=== PATIENT | female | born 1965 | race Two or more races ===

== ENCOUNTER 2024-10-20 16:30 | Emergency (ER) | payer BC, SELFPAY ==
[2024-10-20 16:33] VITALS: BMI 41.1
[2024-10-20 16:59] VITALS: BP 99/62; PULSE 82; RESP 16; TEMP 37.1; O2SAT 95
--- NOTE | 2024-10-20 17:07 | PD.EDRME ---
Rapid Medical Screening Exam E Arrival date/time: 10/20/24 16:30 This is a 59-year-old female that comes into the emergency room with complaints of syncopal episode that happened prior to arrival. Patient states that she is from [place] and her and her significant other were on a motorcycle going to [employer]. Patient states that they ate and they drink at a restaurant and they are on the way to the casino and started to feel very nauseous. Patient states that they stopped and she had a syncopal episode lasting approximately 15 to 20 seconds. By bystanders brought her to the emergency room. Patient complains of nausea patient reports a history of high blood pressure. Patient denies chest pain shortness of breath. I have greeted and performed a focused initial assessment of this patient. Initial appropriate labs ordered at this time. A comprehensive ED assessment and evaluation of the patient and analysis of all test and completion of medical decision making process will be conducted by additional ED provider. Chief Complaint: Syncope / Near Syncope Time Seen by Provider: 10/20/24 16:38 Vital signs: Vital Signs Temperature 98.7 F 10/20/24 16:59 Pulse Rate 82 10/20/24 16:59 Respiratory Rate 16 10/20/24 16:59 Blood Pressure 99/62 10/20/24 16:59 Pulse Oximetry (%) 95 10/20/24 16:59 Oxygen Delivery Method Room Air 10/20/24 16:59
--- NOTE | 2024-10-20 17:08 | XR_ITS ---
Examination: CT brain head without contrast. 2-D sagittal coronal reconstructions Date and time of exam:October 20, 2024, 1725 hrs. Indications: Syncopal episode today with vomiting. CTDI: vol (mGy):56.3. DLP: (mGycm):1159. Technique: Multiple CT axial sections of the brain have been obtained, 5 mm slice thickness. Contrast has not been administered. 2-D sagittal, coronal reconstructions have been obtained Low dose protocols were performed. One or more of the following dose reduction techniques were used; automated exposure control, adjustment of the mA and/or KV according to patient size, use of iterative reconstruction technique. Findings: No significant ventricular enlargement. Intra-axial or extra-axial hemorrhage density is not seen. No mass effect or midline shift Basal cisterns are not remarkable. Fourth ventricle is midline. Cranial vault intact. Impression: Negative for acute hemorrhage, mass effect or midline shift
--- NOTE | 2024-10-20 17:08 | EKG_ITS ---
[facility] Test Date: 2024-10-20 Pat Name: GAIL HAMPTON Department: Room: - Gender: Female Ticket Collector: : 1965 Requested By: Nneka Simeon Order Number: [id number] Reading MD: Nneka Simeon Measurements Intervals [place] Rate: 90 P: 28 FL: 155 QRS: 11 QRSD: 82 T: -10 QT: 340 QTc: 418 Interpretive Statements SINUS RHYTHM LOW QRS VOLTAGE IN PRECORDIAL LEADS [QRS DEFLECTION < 1.0 mV IN CHEST LEADS] MINIMAL ST DEPRESSION [0.025+ mV ST DEPRESSION] No previous ECG available for comparison /store/S0/[id number]/ecg/[id number].pdf
[2024-10-20 18:20] LABS: Basophils # (Auto) 0.0 Thou/mm3 (0.0-0.2); Basophils % (Auto) 0 % (0-2.5); Eosinophils # (Auto) 0.2 Thou/mm3 (0.0-0.5); Eosinophils % (Auto) 2 % (0-10); Hematocrit 44.3 % (36.0-46.0); Hemoglobin 15.3 g/dL (12.0-16.0); Immature Granulocytes Auto 0.06 Thou/mm3 (0.00-0.00); Lymphocytes # (Auto) 1.5 Thou/mm3 (1.0-4.8); Lymphocytes % (Auto) 11 % (10-50); Mean Corpuscular HGB Conc 34.5 g/dl (31.0-37.0); Mean Corpuscular Hemoglobin 34.1 pg (25.0-35.0); Mean Corpuscular Volume 99 fL (80-100); Monocytes # (Auto) 0.7 Thou/mm3 (0.0-0.8); Monocytes % (Auto) 5 % (0-12); Neutrophils # (Auto) 11.2 Thou/mm3 (1.8-7.7); Neutrophils % (Auto) 82 % (37-80); Nucleated Red Blood Cell # 0.00 Thou/mm3 (0.00-0.00); Nucleated Red Blood Cell % 0 /100 WBC (0); Platelet Count 240 Thou/mm3 (140-440); RDW Standard Deviation 43.8 fL (36.4-46.3); Red Blood Count 4.49 Miln/mm3 (4.00-5.20); White Blood Count 13.7 Thou/mm3 (3.6-11.0)
[2024-10-20 18:36] LABS: Alanine Aminotransferase 15 U/L (10-49); Albumin, Serum 4.1 gm/dL (3.4-4.8); Albumin/Globulin Ratio 1.3 (1.2-2.2); Alkaline Phosphatase 124 U/L (46-116); Anion Gap 12 (7-16); Aspartate Amino Transferase 23 U/L (0-34); BUN/Creatinine Ratio 12 Ratio (12-20); Bilirubin,Total 0.3 mg/dL (0.3-1.2); Blood Urea Nitrogen 13 mg/dL (9-23); Calcium 9.9 mg/dL (8.3-10.6); Calcium (Corrected) 9.9 mg/dL (8.5-10.1); Carbon Dioxide 24.6 mMol/L (20.0-31.0); Chloride 106 mMol/L (98-107); Creatinine (Component) 1.1 mg/dL (0.6-1.3); Estimated Creatinine Clearance 65.6 mL/min (>60); Globulin 3.1 gm/dL (2.3-3.5); Glucose 79 mg/dL (74-106); Lipase 33 U/L (12-53); Osmolality,Calculated 284 (275-295); Potassium 3.9 mMol/L (3.4-5.1); Sodium 143 mMol/L (136-145); Total Protein 7.2 gm/dL (5.7-8.2); Troponin I < 0.002 ng/mL (0.0-0.045); eGFR 58 See Note
[2024-10-20 18:36] LABS: Collection Type, Urine Voided
[2024-10-20 18:51] LABS: Bacteria,Urine Rare; Bilirubin,Urine Negative (Negative); Blood,Urine 1+ (Negative); Clarity,Urine Turbid (Clear/Hazy); Color,Urine Yellow (Lt Yel-Yel); Culture Indicated,Urine Not Indicated; Glucose, Urine Negative (Negative); Hyaline Casts,Urine 3 /hpf (0-1); Ketones,Urine Trace (Negative); Leukocyte Esterase,Urine Negative (Negative); Nitrite,Urine Negative (Negative); PH,Urine 5.5 (5.0-7.0); Protein,Urine 2+ (Neg - Trace); RBC,Urine 2 /hpf (0-3); Specific Gravity,Urine 1.018 (1.001-1.035); Squamous Epithelial Cell,Urine 6 /hpf (0-5); Urobilinogen,Urine Negative mg/dL (0.0-1.0); WBC,Urine 9 /hpf (0-5)
[2024-10-20 18:56] LABS: Amphetamine/Methamp Scrn,U Negative (Negative); Barbiturate Screen,Urine Negative (Negative); Benzodiazepines Screen,Urine Negative (Negative); Benzoylecgonine Screen, Ur Negative (Negative); Fentanyl Screen,Urine Negative (Negative); Opiate Screen,Urine Negative (Negative); THC Screen,Urine Negative (Negative)
[2024-10-20 19:07] LABS: B-Type Natriuretic Peptide 38 pg/mL (0-100)
[2024-10-20 19:37] VITALS: BP 129/78; PULSE 61; RESP 18; O2SAT 97
--- NOTE | 2024-10-20 19:56 | PD.EDSYNC ---
ED Syncope RME/HPI General Chief Complaint: Syncope / Near Syncope Stated Complaint: SYNCOPE Time Seen by Provider: 10/20/24 16:38 Arrival date/time: 10/20/24 16:30 RME / HPI RME / HPI narrative: 10/20/24 16:30 This is a 59-year-old female that comes into the emergency room with complaints of syncopal episode that happened prior to arrival. Patient states that she is from [place] and her and her significant other were on a motorcycle going to [employer] [place]. Patient states that they ate and they drink at a restaurant and they are on the way to the [place] and started to feel very nauseous. Patient states that they stopped and she had a syncopal episode lasting approximately 15 to 20 seconds. By bystanders brought her to the emergency room. Patient complains of nausea patient reports a history of high blood pressure. Patient denies chest pain shortness of breath. I have greeted and performed a focused initial assessment of this patient. Initial appropriate labs ordered at this time. A comprehensive ED assessment and evaluation of the patient and analysis of all test and completion of medical decision making process will be conducted by additional ED provider. DR. ROSE MAIN ED EVALUATION: 59 y/o female with Hx of HTN presents to ED c/o possible syncopal episode x just [employer]. states patient passed out. Patient arrived with a BP in the 90's/60's. She is compliant with her Losartan and denies any recent change in dose. No other concerns or complaints expressed at this time. Related Data Allergies Allergy/AdvReac Type Severity Reaction Status Date / Time No Known Allergies Allergy Verified 10/20/24 16:32 Review of Systems Review of Systems Systems Reviewed: All systems reviewed, normal except as documented Past Medical History Past Medical History CARDIAC: Positive Hypertension Social History SMOKING STATUS: Never smoker ED Exam Narrative Physical exam: Generally patient is alert and in no obvious distress, heart is regular rate and rhythm, lungs clear to auscultation bilaterally, abdomen is obese soft bowel sounds present on send nontender, skin is warm and dry, neurologic exam Heath Coma Scale is 15 without focal motor deficit. Course Quality Measures none Orders Category Date Time Status EKG (ED ONLY) *Do not use* NOW Care 10/20/24 17:[address] head/brain wo con Stat Exams 10/20/24 17:08 Completed EKG (ED Only) Stat Exams 10/20/24 17:08 Draft BNP [B-Type Natriuretic Peptide] Stat Lab 10/20/24 17:54 Completed CBC Stat Lab 10/20/24 17:54 Completed Comprehensive Metabolic Panel Stat Lab 10/20/24 17:54 Completed Drug Screen,Urine Stat Lab 10/20/24 18:10 Completed Lipase Stat Lab 10/20/24 17:54 Completed Troponin I Stat Lab 10/20/24 17:54 Completed Urinalysis, C/S if Indicated Stat Lab 10/20/24 18:10 Completed Vital Signs Vital signs: Vital Signs Temperature 98.7 F 10/20/24 16:59 Pulse Rate 82 10/20/24 16:59 Respiratory Rate 16 10/20/24 16:59 Blood Pressure 99/62 10/20/24 16:59 Pulse Oximetry (%) 95 10/20/24 16:59 Oxygen Delivery Method Room Air 10/20/24 16:59 Syncope MDM Narrative MDM Narrative:: Scribe Attestation: Nisha Caceres, am scribing for and in the presence of Dr. Rose. Provider Notation: Although this document has been carefully reviewed, there may still be some phonetic and other typographical errors. These errors are purely grammatical due to imperfections in the software program and should not be construed in any way to? compromise the substance of the patient's medical care during this visit. Differential diagnosis: Syncope, nonsyncope, hypotension, electrolyte abnormality And interpreted all labs. There is no great abnormality. Blood pressure upon arrival was 90s over 60s. Currently is 120s over 70s. Patient has a history of hypertension. She has had no recent medication adjustments. She has been hydrated. She feels much improved. It sounds as if the episode was a near syncopal episode. EKG obtained at 5:15 PM shows normal sinus rhythm at a rate of 90 without ischemic change or ectopy. Normal intervals. Patient data External records reviewed:: [facility] previous records (No prior ED records available for review.) Clinical information provided by:: patient Social determinants that could affect healthcare access:: none Patient has the following chronic illnesses:: HTN How is presenting disease/condition affected by chronic disease/condition?: exacerbated by Evaluation data The following diagnostics were reviewed and interpreted by me:: lab results, radiology exam(s) and EKG tracing(s) Lab and/or radiology exams considered but not ordered:: None Interpretation Summary: RADIOLOGY Head/Brain CT: Findings: No significant ventricular enlargement. Intra-axial or extra-axial hemorrhage density is not seen. No mass effect or midline shift Basal cisterns are not remarkable. Fourth ventricle is midline. Cranial vault intact. Impression: Negative for acute hemorrhage, mass effect or midline shift Medications / Prescriptions Medications or Prescriptions considered but not ordered:: None Medication administrations:: See above if any. Consultations Consultation(s) initiated? (list below): No Diagnosis Syncope Differential Diagnosis: syncope due to orthostatic hypotension, vasovagal syncope, complete atrioventricular block and dehydration Most likely diagnosis given after review of the tests above:: none Admission Indicated Admission indicated?: not indicated Explain why admission is indicated or not indicated:: Patient does not meet admission criteria. Admission Request Was there a request for admission?: No Disposition Plan Disposition Plan: Discharge Discharge Attestation Discharge Attestation: The patient and all family members were given an opportunity to ask questions and understood the discharge instructions. Discharge instructions specifically effects, indications for sooner follow up or return to the emergency department, and the expected course of current diagnosis. Patient condition: Stable Discharge Plan Plan Patient Disposition: HOME (Self Care) Prescriptions/Referrals Referrals: No Primary/Family,Physician [Primary Care Provider] - In 1 week Problem List Clinical Impression: Near syncope, Hypotension Patient/Caregiver Discharge Instructions Education Materials: Hypotension Dc Additional Instructions: Stay well-hydrated. Continue current medications. Follow-up with your doctor. Return to ER as needed or if condition worsens. Print Language: Spanish Stand Alone Forms: [employer] Award Info., Patient Portal Info Letter
== END 2024-10-20 20:11 | disposition home or self-care (01) ==
PROVIDERS: Nurse Practitioner Family; Emergency Provider Emergency Medicine
DX: I95.9 Hypotension, unspecified (principal); R94.31 Abnormal electrocardiogram [ECG] [EKG]; I10 Essential (primary) hypertension
CPT/HCPCS: 36415; 70450; 80053; 80307; 81001; 83690; 83880; 84484; 85025; 93005; 99283